=== PATIENT | male | born 1970 | race Caucasian/White ===

== ENCOUNTER 2019-07-15 15:52 | Emergency (ER) | payer OTHER ==
[~2019-07-15] VITALS: Ht 177.8 cm; Wt 90.7 kg
[~2019-07-15 15:52] MED LIST: ASPI81CH; ATOR10 PO; ATOR20; BACL10 PO; BUPR150ER PO; DILT120 PO; GLIM2 PO; INSDET100; LISI5; LORPSEER24; METF500 PO; Omeprazole20 M1
[2019-07-15] MEDS ORDERED: Percocet 5-3251 EACH PO (15:59)
== END 2019-07-15 16:02 | disposition home or self-care (01) ==
LOC: ER 15:52
DX: K04.7 Periapical abscess without sinus (principal); Z88.5 Allergy status to narcotic agent; Z79.4 Long term (current) use of insulin; Z79.899 Other long term (current) drug therapy; Z79.82 Long term (current) use of aspirin; E11.9 Type 2 diabetes mellitus without complications; Z87.891 Personal history of nicotine dependence
CPT/HCPCS: 99282

== ENCOUNTER → 2021-09-21 | Outpatient (CLI) | payer OTHER ==
[~2021-09-21] MED LIST changes: +Percocet 5-3251 EACH PO
== END | disposition home or self-care (01) ==
LOC: LAB SHORT 15:17
DX: D22.111 Melanocytic nevi of right upper eyelid, including canthus (principal)
CPT/HCPCS: 88305

== ENCOUNTER → 2022-11-24 | Outpatient (CLI) | payer BC | END | disposition home or self-care (01) | LOC: LAB 13:58 → LAB SHORT 13:58 | DX: N39.0 Urinary tract infection, site not specified (principal) | CPT/HCPCS: 87077; 87086; 87186 ==

== ENCOUNTER 2023-07-09 08:53 | Observation (INO) | payer BC ==
[2023-07-09] VITALS (10 sets, daily range): BP systolic 120–149; BP diastolic 78–99
[~2023-07-09] VITALS: Ht 177.8 cm; Wt 90.7 kg
[2023-07-09] MEDS ORDERED: JARDIANCE25 MG PO (09:12)
[2023-07-09] MEDS ORDERED: IRBESARTAN150 M3 PO (09:12)
[2023-07-09] MEDS ORDERED: SILDENAFIL CIT100 MG PO (09:12)
[2023-07-09] MEDS ORDERED: PIOGLITAZONE HC45 MG PO (09:13)
[2023-07-09 10:13] LABS: BASOPHILS ABSOLUTE AUTO 0.07 K/mm3 (0.00-0.23); BASOPHILS PERCENT AUTO 1 % (0-2); EOSINOPHILS PERCENT AUTO 1 % (0-6); Hematocrit 47.3 % (37.0-53.0); Hemoglobin 16.1 g/dL (13.5-17.5); IMMATURE GRAN ABSOLUTE AUTO 0.07 K/mm3 (0.00-0.10); IMMATURE GRAN PERCENT AUTO 1 % (0-1); LYMPHOCYTES ABSOLUTE AUTO 1.54 K/mm3 (0.84-5.20); LYMPHOCYTES PERCENT AUTO 11 % (21-46); MONOCYTES ABSOLUTE AUTO 1.36 K/mm3 (0.16-1.47); MONOCYTES PERCENT AUTO 10 % (4-13); Mean Corpuscular HGB 32.9 pg (26.0-34.0); Mean Corpuscular Volume 97 fL (80-100); NEUTROPHILS ABSOLUTE AUTO 10.99 K/mm3 (1.96-9.15); NEUTROPHILS PERCENT AUTO 78 % (41-73); Platelet Count 249 K/mm3 (150-400); RDW Coefficient Variation 13.2 % (11.7-14.2); RDW Standard Deviation 47.2 fL (35.1-46.3); White Blood Cell Count 14.13 K/mm3 (4.00-11.30)
[2023-07-09 10:32] LABS: Calcium, Blood 8.8 mg/dL (8.5-10.1); Creatinine, Blood 0.8 mg/dL (0.60-1.20); Potassium, Blood 4.3 mmol/L (3.5-5.5)
--- NOTE | 2023-07-09 12:15 | NUR ---
PRE-OP NOTE PT A&OX4, BREATHING RA, VSS. PT BELONGINGS, NECKLACE AND GLASSES C . Ambulatory in Day Surgery Patient confirms NPO status and agrees with scheduled surgery. Pre-Op teaching done. Pt verbalizes understanding.
--- NOTE | 2023-07-09 13:11 | NUR ---
PT TO DAY SURGERY STEP DOWN. PT IS AWAKE AND ALERT, ABLE TO MOVE SELF IN BED. PT HAS 2X2 GUAZE ON LEFT CHEST THAT IS REINFORCED WITH TRANSPARENT TAPE; GUAZE IS 90% SATURATED WITH SEROSANGOUS FLUID, IT IS CONTAINED WITHIN THE TAPE. PT HAS NO COMPLAINTS. PO FLUIDS GIVEN.
--- NOTE | 2023-07-09 13:22 | NUR ---
PT TO STEP DOWN UNIT WITH 20G IV IN RIGHT AC
--- NOTE | 2023-07-09 13:25 | NUR ---
PT TOLERATING PO FLUIDS AND CRACKERS WELL. AT BEDSIDE, AND WILL BE RIDE HOME. INCISION GUAZE IS COMPLETELY SATURATED, BUT NO SEAPAGE FROM TAPE.
[2023-07-09] MEDS ORDERED: Percocet 5-3251 EACH PO (13:34)
[2023-07-09] MEDS ORDERED: AMOCLA875 PO (13:34)
--- NOTE | 2023-07-09 13:47 | NUR ---
Discharge instructions reviewed with patient. Patient verbalizes understanding. Copy given to patient to take home.
--- NOTE | 2023-07-09 13:52 | NUR ---
NO CHANGES IN INCISION. Patient up to Ambulate independently. Gait steady. Patient States Post-Procedure ride home has been arranged.
== END 2023-07-09 13:55 | disposition home or self-care (01) ==
LOC: ER 08:53 → SURS 11:30 → ER 11:36 → SURS 13:55
PROVIDERS: Emergency Medicine; ADMIT Surgery
PROC: 0H9U0ZZ Drainage of Left Breast, Open Approach (ICD-10-PCS; principal; 2023-07-09 11:30)
DX: N61.1 Abscess of the breast and nipple (principal); E11.9 Type 2 diabetes mellitus without complications; I10 Essential (primary) hypertension; E78.5 Hyperlipidemia, unspecified; Z87.891 Personal history of nicotine dependence; Z88.5 Allergy status to narcotic agent
CPT/HCPCS: 76604; 80048; 82947; 85025; 87070; 87075; 87205; 93005; 93010; 96365-59; 99285-25; A9270; J0295; J1100; J2250; J2405; J2704; J3010; J7120